=== PATIENT | female | born 1985 | race Caucasian/White ===

== ENCOUNTER 2016-10-25 18:28 | Emergency (ER) | payer OTHER ==
--- NOTE | 2016-10-25 19:02 | ED NURSING NOTES ---
Clinical Report - Nurses [facility] [address] [place] [address] 10/25/2016 18:31 [id number] Triage time 18:36 Oct 25 2016. Acuity: LEVEL 4. Chief Complaint: RIGHT EAR PAIN. AFSHAN COMA SCORE: Afshan Coma Scale: 15- eyes open spontaneously (4); best verbal response- oriented x 4 (5); best motor response- obeys commands (6). --18:44 Stiven Santillan R.N. 18:36 10/25/16. BP: 120/72. HR: 78. RR: 18. O2 saturation: 100%. Temp: 98.1 F. Pain level now 6/10. --18:44 Stiven Santillan R.N. Height/Length: 61 inches Per Patient. --18:38 Stiven Santillan R.N.. Weight: 79.3 kg stated. BMI: 33. --18:36 Stiven Santillan R.N. Medications Ibuprofen Oral. --18:39 Stiven Santillan R.N. Omeprazole Oral. --18:40 Stiven Santillan R.N. Claritin Oral. --18:40 Stiven Santillan R.N. Allergies No Known Drug Allergy. --18:40 Stiven Santillan R.N. Latex. --18:40 Stiven Santillan R.N. History Arrived by private vehicle. Historian: patient. ( Last Sat went to ready clinic and was given ear drops but the pain is worse.). She has had a nasal discharge, a sore throat, ear drainage, sinus pain and a headache. No fever. PAST MEDICAL HX: No history of ear infection, hearing loss or prior nosebleeds. Immunizations: up-to-date. The patient has had a hysterectomy. No history of sinus problems. SOCIAL HX: Current every day heavy tobacco smoker (cigarette)- less than 1 pack per day. No alcohol use or drug use. SELF HARM ASSESSMENT: A self harm assessment was performed. The patient answered "no" to the question "Have you recently felt down, depressed, or hopeless?" and "Do you have thoughts of harming or killing yourself?". FALL RISK ASSESSMENT: Fall risk assessment completed. No fall risk identified. NUTRITIONAL RISK ASSESSMENT: The nutritional risk assessment revealed no deficiencies. FUNCTIONAL ASSESSMENT: Functional assessment: no impairments noted. LEARNING NEEDS ASSESSMENT: The learning needs assessment revealed no barriers. ABUSE ASSESSMENT: Abuse assessment: (yes) The patient was asked "Do you feel safe in your home?". SKIN INTEGRITY ASSESSMENT: Skin integrity risk assessment completed. No skin integrity risk identified. --18:44 Stiven Santillan R.N. PROBLEMS: Endometriosis. --18:43 Stiven Santillan R.N. Anxiety Reaction. --18:44 Stiven Santillan R.N. ADDITIONAL SURGERIES: . Hysterectomy. Laparoscopy. Left elbow . --18:43 Stiven Santillan R.N. Interventions ID band on patient. --18:44 Stiven Santillan R.N. PHYSICAL ASSESSMENT Ambulatory to room. GENERAL / NEURO / PSYCH: Appears in pain. HEENT: No facial asymmetry noted. Pupils equal, round and reactive to light. EOM intact. Pharynx within normal limits. RESPIRATORY: Respirations not labored. CVS: Capillary refill less than 2 seconds. SKIN: Skin is warm and dry. --18:44 Stiven Santillan R.N. NURSING PROGRESS NOTES Reassurance given. Call light placed in reach. Side rails up x 1. --18:44 Stiven Santillan R.N. DISPOSITION / DISCHARGE 19:10 10/25/16. Condition at departure: stable. The goals identified in the patient's plan of care were met. No learning barriers present. Discharge instructions provided and reviewed with the patient. Reviewed warnings (Do not drive while taking sedative medications). Reviewed medication(s) side effects, precautions, dosing and course information. Prescription(s) given to the patient. Patient verbalized understanding. Written instructions provided in Spanish. ( Follow up with your PCP in three days. Drink plenty of fluids. Return if symptoms worsen. Patient verbalized understanding and had no additional questions at this time.). The patient was discharged by the physician. She was discharged home and accompanied by actuarial technician. She left the Emergency Department ambulatory and via private vehicle. Urologic Surgeon driving. FALL RISK ASSESSMENT: Fall risk assessment completed. No fall risk identified. --21:06 Jen Álvarez 19:10 10/25/16. BP: deferred. HR: deferred. RR: deferred. O2 saturation: deferred. Temp: deferred. Pain level now deferred. --21:06 Jen Álvarez. Locked/Released at 10/31/2016 19:01 by Stiven Santillan R.N.
--- NOTE | 2016-10-25 19:02 | ED CLINICAL REPORT ---
Clinical Report - Physicians/Mid Levels [facility] [address] [place] [address] 10/25/2016 18:31 Patient: CLARA PASTRANA Time Seen: 18:51; initial patient contact, initial documentation, patient care assumed. Arrived- By private vehicle. Historian- patient. HISTORY OF PRESENT ILLNESS Chief Complaint: EARACHE. Modifying factors. Not worsened by anything. Not relieved by anything. This started about 1 weeks ago. Location- right ear. The pain is described as moderate. The patient has had mild right ear pain. No ear drainage, complaint of foreign body in the ear, ear trauma, recent barotrauma or tinnitus. She has had nasal congestion, sinus pressure and a nasal discharge and sore throat. Similar symptoms previously: None. Recent medical care: The patient was seen recently in a clinic. ( went to clinic Sat, given ear drops, no better). REVIEW OF SYSTEMS No fever, cough, difficulty breathing or chest pain. She has had a pressure-like frontal and facial headache. All systems otherwise negative, except as recorded above. PAST HISTORY See nurses notes. PROBLEMS: Endometriosis. --18:43 Stiven Santillan R.N. Anxiety Reaction. --18:44 Stiven Santillan R.N. ADDITIONAL SURGERIES: . Hysterectomy. Laparoscopy. Left elbow . --18:43 Stiven Santillan R.N. SOCIAL HISTORY Light tobacco smoker. Not exposed to second-hand smoke at home. No alcohol use or drug use. No recent travel. Is a local resident. FAMILY HISTORY Negative. ADDITIONAL NOTES The nursing notes have been reviewed with agreement regarding the chief complaint, HPI, ROS, PMH and patient medications and allergies. PHYSICAL EXAM Vital Signs: 10/25/2016 18:36 BP: 120/72. HR: 78. RR: 18. O2 saturation: 100%. Temp: 98.1 F. Have been reviewed as normal and appear to be correct. Appearance: Alert. No acute distress. Eyes: Eyes normal inspection. Throat: Pharynx normal. Nose: Tenderness present to percussion/palpation of the sinuses: moderate right and left frontal tenderness, maxillary tenderness, ethmoid tenderness. Nose abnormal. No nasal discharge. Ear (right): Right ear normal. Right tympanic membrane normal. Ear (left): Left ear normal. Left tympanic membrane normal. Neck: Normal inspection. Neck supple. CVS: Normal heart rate and rhythm. Heart sounds normal. Respiratory: No respiratory distress. Breath sounds normal. Abdomen: Soft and nontender. Moderately obese. Back: Normal inspection. Skin: Skin warm and dry. Normal skin color. No rash. Normal skin turgor. Extremities: Extremities exhibit normal ROM. No lower extremity edema. Neuro: Oriented X 3. No motor deficit. No sensory deficit. PROGRESS AND PROCEDURES Patient counseled in person regarding the patient's stable condition and diagnosis. Differential Diagnosis: Other possible considerations: aoe, aom, perforated tm, sinusitis, allergies, flu, viral illness, pharyngitis, bronchitis, pneumonia. Above considerations are based on history and physical exam. Differential diagnosis was discussed with patient. Disposition: Discharged home in good and unchanged condition (19:02). Condition: good and stable. CLINICAL IMPRESSION Acute maxillary, ethmoidal and frontal sinusitis INSTRUCTIONS Drink plenty of fluids for the next 24 hours until better. Warnings: GENERAL WARNINGS: Return or contact your physician immediately if your condition worsens or changes unexpectedly, if not improving as expected, or if other problems arise. Specifically return if problem worsens. Prescription Medications: Nasacort nasal spray: 2 sprays in each nostril once daily as needed for allergies. Dispense one (1) unit. No refills. Substitution is permissible. Augmentin 875 mg: take 1 tablet orally every 12 hours for 10 days. No refill. Ultram 50 mg tablets: take 1-2 orally every 6 hours as needed for pain. Dispense twenty (20). No refills. Substitution is permissible. Follow-up: Follow up with your doctor in about three days even if well. Call for an appointment. Summary of care provided to patient. Understanding of the discharge instructions verbalized by patient. (Electronically signed by Kathleen Son A.R.N.P. 10/25/2016 20:13)
--- NOTE | 2016-10-25 19:02 | ED NURSING NOTES ---
Clinical Report - Nurses [facility] [address] [place] [address] 10/25/2016 18:31 [id number] Triage time 18:36 Oct 25 2016. Acuity: LEVEL 4. Chief Complaint: RIGHT EAR PAIN. AFSHAN COMA SCORE: Afshan Coma Scale: 15- eyes open spontaneously (4); best verbal response- oriented x 4 (5); best motor response- obeys commands (6). --18:44 Stiven Santillan R.N. 18:36 10/25/16. BP: 120/72. HR: 78. RR: 18. O2 saturation: 100%. Temp: 98.1 F. Pain level now 6/10. --18:44 Stiven Santillan R.N. Height/Length: 61 inches Per Patient. --18:38 Stiven Santillan R.N.. Weight: 79.3 kg stated. BMI: 33. --18:36 Stiven Santillan R.N. Medications Ibuprofen Oral. --18:39 Stiven Santillan R.N. Omeprazole Oral. --18:40 Stiven Santillan R.N. Claritin Oral. --18:40 Stiven Santillan R.N. Allergies No Known Drug Allergy. --18:40 Stiven Santillan R.N. Latex. --18:40 Stiven Santillan R.N. History Arrived by private vehicle. Historian: patient. ( Last Sat went to ready clinic and was given ear drops but the pain is worse.). She has had a nasal discharge, a sore throat, ear drainage, sinus pain and a headache. No fever. PAST MEDICAL HX: No history of ear infection, hearing loss or prior nosebleeds. Immunizations: up-to-date. The patient has had a hysterectomy. No history of sinus problems. SOCIAL HX: Current every day heavy tobacco smoker (cigarette)- less than 1 pack per day. No alcohol use or drug use. SELF HARM ASSESSMENT: A self harm assessment was performed. The patient answered "no" to the question "Have you recently felt down, depressed, or hopeless?" and "Do you have thoughts of harming or killing yourself?". FALL RISK ASSESSMENT: Fall risk assessment completed. No fall risk identified. NUTRITIONAL RISK ASSESSMENT: The nutritional risk assessment revealed no deficiencies. FUNCTIONAL ASSESSMENT: Functional assessment: no impairments noted. LEARNING NEEDS ASSESSMENT: The learning needs assessment revealed no barriers. ABUSE ASSESSMENT: Abuse assessment: (yes) The patient was asked "Do you feel safe in your home?". SKIN INTEGRITY ASSESSMENT: Skin integrity risk assessment completed. No skin integrity risk identified. --18:44 Stiven Santillan R.N. PROBLEMS: Endometriosis. --18:43 Stiven Santillan R.N. Anxiety Reaction. --18:44 Stiven Santillan R.N. ADDITIONAL SURGERIES: . Hysterectomy. Laparoscopy. Left elbow . --18:43 Stiven Santillan R.N. Interventions ID band on patient. --18:44 Stiven Santillan R.N. PHYSICAL ASSESSMENT Ambulatory to room. GENERAL / NEURO / PSYCH: Appears in pain. HEENT: No facial asymmetry noted. Pupils equal, round and reactive to light. EOM intact. Pharynx within normal limits. RESPIRATORY: Respirations not labored. CVS: Capillary refill less than 2 seconds. SKIN: Skin is warm and dry. --18:44 Stiven Santillan R.N. NURSING PROGRESS NOTES Reassurance given. Call light placed in reach. Side rails up x 1. --18:44 Stiven Santillan R.N. DISPOSITION / DISCHARGE 19:10 10/25/16. Condition at departure: stable. The goals identified in the patient's plan of care were met. No learning barriers present. Discharge instructions provided and reviewed with the patient. Reviewed warnings (Do not drive while taking sedative medications). Reviewed medication(s) side effects, precautions, dosing and course information. Prescription(s) given to the patient. Patient verbalized understanding. Written instructions provided in Tristanian. ( Follow up with your PCP in three days. Drink plenty of fluids. Return if symptoms worsen. Patient verbalized understanding and had no additional questions at this time.). The patient was discharged by the physician. She was discharged home and accompanied by senior solutions engineer. She left the Emergency Department ambulatory and via private vehicle. Submarine Advisory Team Watch Officer driving. FALL RISK ASSESSMENT: Fall risk assessment completed. No fall risk identified. --21:06 Jen Álvarez 19:10 10/25/16. BP: deferred. HR: deferred. RR: deferred. O2 saturation: deferred. Temp: deferred. Pain level now deferred. --21:06 Jen Álvarez. Locked/Released at 10/31/2016 19:01 by Stiven Santillan R.N.
--- NOTE | 2016-10-31 19:02 | ED MED RECONCILIATION SUMMARY ---
Patient: CLARA PASTRANA Medication Reconciliation Report [facility] VisitID: [id number] [address] [place] [address] 30y, F Registration Date/Time: 10/25/2016 Weight: 79.3 kg Height/Length: 61 in. BMI: 33.0 ALLERGIES: Latex, No Known Drug Allergy The patient's Home Medications are listed below: THE FOLLOWING MEDICATIONS NEED TO BE RECONCILED: Claritin Oral Ibuprofen Oral Omeprazole Oral The source(s) of the original Home Medication information: Not obtained. The following Medications were given to the patient in the Emergency Department: None. The following Medications were prescribed to the patient: Nasacort nasal spray: 2 sprays in each nostril once daily as needed for allergies. Dispense one (1) unit. No refills. Substitution is permissible. -- Kathleen Son, Adele.R.N.P. Augmentin 875 mg: take 1 tablet orally every 12 hours for 10 days. No refill. -- Kathleen Son A.R.N.P. Ultram 50 mg tablets: take 1-2 orally every 6 hours as needed for pain. Dispense twenty (20). No refills. Substitution is permissible. -- Kathleen Son A.R.N.P.
--- NOTE | 2016-10-31 19:02 | ED MAR SUMMARY ---
..... Medication Administration Record [facility] [address] [id number] Patient: LCARA PASTRANA Visit ID: [id number] 30y, F Weight: 79.3 kg Height/Length: 61 in BMI: 33 ALLERGIES: Latex, No Known Drug Allergy
--- NOTE | 2016-10-31 19:02 | ED MED RECONCILIATION SUMMARY ---
Patient: CLARA PASTRANA Medication Reconciliation Report [facility]ID: [id number] [address] [place] [address] 30y, F Registration Date/Time: 10/25/2016 Weight: 79.3 kg Height/Length: 61 in. BMI: 33.0 ALLERGIES: Latex, No Known Drug Allergy The patient's Home Medications are listed below: THE FOLLOWING MEDICATIONS NEED TO BE RECONCILED: Claritin Oral Ibuprofen Oral Omeprazole Oral The source(s) of the original Home Medication information: Not obtained. The following Medications were given to the patient in the Emergency Department: None. The following Medications were prescribed to the patient: Nasacort nasal spray: 2 sprays in each nostril once daily as needed for allergies. Dispense one (1) unit. No refills. Substitution is permissible. -- Kathleen Son, Adele.R.N.P. Augmentin 875 mg: take 1 tablet orally every 12 hours for 10 days. No refill. -- Kathleen Son A.R.N.P. Ultram 50 mg tablets: take 1-2 orally every 6 hours as needed for pain. Dispense twenty (20). No refills. Substitution is permissible. -- Kathleen Son A.R.N.P.
--- NOTE | 2016-10-31 19:02 | ED DISCHARGE INSTRUCTIONS ---
Patient: CLARA PASTRANA General Instructions [facility] VisitID: [id number] [place] [address] 30y, F Registration Date/Time: 10/25/2016 Acute maxillary, ethmoidal and frontal sinusitis INSTRUCTIONS Drink plenty of fluids for the next 24 hours until better. Warnings: GENERAL WARNINGS: Return or contact your physician immediately if your condition worsens or changes unexpectedly, if not improving as expected, or if other problems arise. Specifically return if problem worsens. Prescription Medications: Nasacort nasal spray: 2 sprays in each nostril once daily as needed for allergies. Dispense one (1) unit. No refills. Substitution is permissible. Augmentin 875 mg: take 1 tablet orally every 12 hours for 10 days. No refill. Ultram 50 mg tablets: take 1-2 orally every 6 hours as needed for pain. Dispense twenty (20). No refills. Substitution is permissible. Follow-up: Follow up with your doctor in about three days even if well. Call for an appointment. Summary of care provided to patient. Understanding of the discharge instructions verbalized by patient. ADDITIONAL INFORMATION Sinusitis [Abx Tx] The sinuses are air-filled spaces within the bones of the face. They connect to the inside of the nose. Sinusitis is an inflammation of the tissue lining the sinus cavity. Sinus inflammation can occur during a cold or hay-fever (allergies to pollens and other particles in the air) and cause symptoms of sinus congestion and fullness. A sinus infection causes fever, headache and facial pain. There is usually green or yellow drainage from the nose or into the back of the throat (post-nasal drip). Antibiotics are prescribed to treat this condition. Home Care: Drink plenty of water, hot tea, and other liquids to stay well hydrated. This thins the mucus and promotes sinus drainage. Apply heat to the painful areas of the face. Use a towel soaked in hot water. Or, business transformation manager the shower and direct the hot spray onto your face. This is a good way to inhale warm water vapor and get heat on your face at the same time. (Cover your mouth and nose with your hands so you can still breathe as you do this.) Use a vaporizer with products such as [employer] VapoRub (contains menthol) at night. Suck on peppermint, menthol or eucalyptus hard candies during the day. An expectorant containing guaifenesin (such as Robitussin), helps to thin the mucus and promote drainage from the sinuses. Cuai-wdz-odtugga decongestants may be used unless a similar medicine was prescribed. Nasal sprays work the fastest. Use one that contains phenylephrine (Art-synephrine, Sinex and others) or oxymetazoline (Afrin). First blow the nose gently to remove mucus, then apply the drops. Do not use these medicines more often than directed on the label or for more than three days or symptoms may worsen. You may also use tablets containing pseudoephedrine (Sudafed). Many sinus remedies combine ingredients, which may increase side effects. Read the labels or ask the pharmacist for help. NOTE: Persons with high blood pressure should not use decongestants. They can raise blood pressure. Antihistamines are useful if allergies are a cause of your sinusitis. The mildest one is chlorpheniramine (available without a prescription). The dose for adults is 8-12mg three times a day. [NOTE: Do not use chlorpheniramine if you have glaucoma or if you are a man with trouble urinating due to an enlarged prostate.] Claritin (loratidine) is an antihistamine that causes less drowsiness and is a good alternative for daytime use. Do not use nasal rinses or irrigation during an acute sinus infection, unless advised by your doctor. Rinsing may spread the infection to other sinuses. You may use acetaminophen (Tylenol) or ibuprofen (Motrin, Advil) to control pain, unless another pain medicine was prescribed. [ NOTE: If you have chronic liver or kidney disease or ever had a stomach ulcer, talk with your doctor before using these medicines.] (Aspirin should never be used in anyone under 18 years of age who is ill with a fever. It may cause severe liver damage.) Finish the full course, even if you are feeling better after a few days. Follow Up with your doctor or this facility in one week or as instructed by our staff if not improving. Get Prompt Medical Attention if any of the following occur: Facial pain or headache becomes more severe Stiff neck Unusual drowsiness or confusion, or not acting like your normal self Swelling of the forehead or eyelids Vision problems including blurred or double vision Fever of 100.4F (38C) or higher, or as directed by your healthcare provider Seizure Triamcinolone Acetonide Nasal spray What is this medicine? TRIAMCINOLONE (trye am SIN oh lone) nasal spray is a corticosteroid. It is used to treat the nasal symptoms of seasonal and year round allergies. How should I use this medicine? This medicine is for use in the nose. Follow the directions on your prescription label. This medicine works best if used regularly. Do not use more often than directed. Make sure that you are using your nasal spray correctly. Ask you doctor or health care provider if you have any questions. Talk to your restaurant expeditor regarding the use of this medicine in children. While this drug may be prescribed for children as young as 2 years of age for selected conditions, precautions do apply. What side effects may I notice from receiving this medicine? Side effects that you should report to your doctor or health child care teacher as soon as possible: allergic reactions like skin rash, itching or hives, swelling of the face, lips, or tongue change in vision dizziness infection nosebleed, burning in the nose trouble breathing, wheezing unusual bruising white patches or sores in the nose Side effects that usually do not require medical attention (report to your doctor or health child care teacher if they continue or are bothersome): congestion cough headache nausea runny nose sneezing What may interact with this medicine? Interactions are not expected. What if I miss a dose? If you miss a dose, take it as soon as you can. If it is almost time for your next dose, take only that dose. Do not take double or extra doses. Where should I keep my medicine? Keep out of the reach of children. Store at room temperature between 20 and 25 degrees C (68 and 77 degrees F). Throw away the canister after 120 sprays or after the expiration date, whichever comes first. What should I tell my health care provider before I take this medicine? They need to know if you have any of these conditions: infection, like tuberculosis, herpes, or fungal infection recent surgery or injury of nose or sinuses taking corticosteroids by mouth an unusual or allergic reaction to triamcinolone, corticosteroids, other medicines, foods, dyes, or preservatives or trying to get breast-feeding What should I watch for while using this medicine? Check with your doctor or health child care teacher if your symptoms do not improve in 1 week of regular use or if they get worse. Do not come in contact with people who have chickenpox or the measles while you are taking this medicine. If you do, call your doctor right away. Amoxicillin Trihydrate, Clavulanate Potassium Oral tablet What is this medicine? AMOXICILLIN; CLAVULANIC ACID (a mox i KENNETH in; LEVAR yeung ic id) is a penicillin antibiotic. It is used to treat certain kinds of bacterial infections. It will not work for colds, flu, or other viral infections. How should I use this medicine? Take this medicine by mouth with a full glass of water. Follow the directions on the prescription label. Take at the start of a meal. Do not crush or chew. If the tablet has a score line, you may cut it in half at the score line for easier swallowing. Take your medicine at regular intervals. Do not take your medicine more often than directed. Take all of your medicine as directed even if you think you are better. Do not skip doses or stop your medicine early. Talk to your restaurant expeditor regarding the use of this medicine in children. Special care may be needed. What side effects may I notice from receiving this medicine? Side effects that you should report to your doctor or health child care teacher as soon as possible: allergic reactions like skin rash, itching or hives, swelling of the face, lips, or tongue breathing problems dark urine fever or chills, sore throat redness, blistering, peeling or loosening of the skin, including inside the mouth seizures trouble passing urine or change in the amount of urine unusual bleeding, bruising unusually weak or tired white patches or sores in the mouth or throat Side effects that usually do not require medical attention (report to your doctor or health child care teacher if they continue or are bothersome): diarrhea dizziness headache nausea, vomiting stomach upset vaginal or anal irritation What may interact with this medicine? allopurinol anticoagulants control pills methotrexate probenecid What if I miss a dose? If you miss a dose, take it as soon as you can. If it is almost time for your next dose, take only that dose. Do not take double or extra doses. Where should I keep my medicine? Keep out of the reach of children. Store at room temperature below 25 degrees C (77 degrees F). Keep container tightly closed. Throw away any unused medicine after the expiration date. What should I tell my health care provider before I take this medicine? They need to know if you have any of these conditions: bowel disease, like colitis kidney disease liver disease mononucleosis an unusual or allergic reaction to amoxicillin, penicillin, cephalosporin, other antibiotics, clavulanic acid, other medicines, foods, dyes, or preservatives or trying to get breast-feeding What should I watch for while using this medicine? Tell your doctor or health child care teacher if your symptoms do not improve. Do not treat diarrhea with over the counter products. Contact your doctor if you have diarrhea that lasts more than 2 days or if it is severe and watery. If you have diabetes, you may get a false-positive result for sugar in your urine. Check with your doctor or health child care teacher. control pills may not work properly while you are taking this medicine. Talk to your doctor about using an extra method of control. Tramadol Hydrochloride Oral tablet What is this medicine? TRAMADOL (TRA ma dole) is a pain reliever. It is used to treat moderate to severe pain in adults. How should I use this medicine? Take this medicine by mouth with a full glass of water. Follow the directions on the prescription label. If the medicine upsets your stomach, take it with food or milk. Do not take more medicine than you are told to take. Talk to your restaurant expeditor regarding the use of this medicine in children. Special care may be needed. What side effects may I notice from receiving this medicine? Side effects that you should report to your doctor or health child care teacher as soon as possible: allergic reactions like skin rash, itching or hives, swelling of the face, lips, or tongue breathing difficulties, wheezing confusion itching light headedness or fainting spells redness, blistering, peeling or loosening of the skin, including inside the mouth seizures Side effects that usually do not require medical attention (report to your doctor or health child care teacher if they continue or are bothersome): constipation dizziness drowsiness headache nausea, vomiting What may interact with this medicine? Do not take this medicine with any of the following medications: MAOIs like Carbex, Eldepryl, Marplan, Nardil, and Parnate This medicine may also interact with the following medications: alcohol or medicines that contain alcohol antihistamines benzodiazepines bupropion carbamazepine or oxcarbazepine clozapine cyclobenzaprine digoxin furazolidone linezolid medicines for depression, anxiety, or psychotic disturbances medicines for migraine headache like almotriptan, eletriptan, frovatriptan, naratriptan, rizatriptan, sumatriptan, zolmitriptan medicines for pain like pentazocine, buprenorphine, butorphanol, meperidine, nalbuphine, and propoxyphene medicines for sleep muscle relaxants naltrexone phenobarbital phenothiazines like perphenazine, thioridazine, chlorpromazine, mesoridazine, fluphenazine, prochlorperazine, promazine, and trifluoperazine procarbazine warfarin What if I miss a dose? If you miss a dose, take it as soon as you can. If it is almost time for your next dose, take only that dose. Do not take double or extra doses. Where should I keep my medicine? Keep out of the reach of children. Store at room temperature between 15 and 30 degrees C (59 and 86 degrees F). Keep container tightly closed. Throw away any unused medicine after the expiration date. What should I tell my health care provider before I take this medicine? They need to know if you have any of these conditions: brain tumor depression drug abuse or addiction head injury if you frequently drink alcohol containing drinks kidney disease or trouble passing urine liver disease lung disease, asthma, or breathing problems seizures or epilepsy suicidal thoughts, plans, or attempt; a previous suicide attempt by you or a family member an unusual or allergic reaction to tramadol, codeine, other medicines, foods, dyes, or preservatives or trying to get breast-feeding What should I watch for while using this medicine? Tell your doctor or health child care teacher if your pain does not go away, if it gets worse, or if you have new or a different type of pain. You may develop tolerance to the medicine. Tolerance means that you will need a higher dose of the medicine for pain relief. Tolerance is normal and is expected if you take this medicine for a long time. Do not suddenly stop taking your medicine because you may develop a severe reaction. Your body becomes used to the medicine. This does NOT mean you are addicted. Addiction is a behavior related to getting and using a drug for a non-medical reason. If you have pain, you have a medical reason to take pain medicine. Your doctor will tell you how much medicine to take. If your doctor wants you to stop the medicine, the dose will be slowly lowered over time to avoid any side effects. You may get drowsy or dizzy. Do not drive, use machinery, or do anything that needs mental alertness until you know how this medicine affects you. Do not stand or sit up quickly, especially if you are an older patient. This reduces the risk of dizzy or fainting spells. Alcohol can increase or decrease the effects of this medicine. Avoid alcoholic drinks. You may have constipation. Try to have a bowel movement at least every 2 to 3 days. If you do not have a bowel movement for 3 days, call your doctor or health child care teacher. Your mouth may get dry. Chewing sugarless gum or sucking hard candy, and drinking plenty of water may help. Contact your doctor if the problem does not go away or is severe. You have been given the following additional information: Sinusitis, Abx Tx Triamcinolone Acetonide Nasal spray Amoxicillin Trihydrate, Clavulanate Potassium Oral tablet Tramadol Hydrochloride Oral tablet (Electronically signed by Kathleen Son A.R.N.P. 10/25/2016 20:13)
--- NOTE | 2016-10-31 19:02 | ED MAR SUMMARY ---
..... Medication Administration Record [facility] [address] [place], [place] [id number] Patient: CLARA PASTRANA Visit ID: [id number] 30y, F Weight: 79.3 kg Height/Length: 61 in BMI: 33 ALLERGIES: Latex, No Known Drug Allergy
--- NOTE | 2016-10-31 19:02 | ED DISCHARGE INSTRUCTIONS ---
Patient: CLARA PASTRANA General Instructions [facility] VisitID: [id number] [place] [address] 30y, F Registration Date/Time: 10/25/2016 Acute maxillary, ethmoidal and frontal sinusitis INSTRUCTIONS Drink plenty of fluids for the next 24 hours until better. Warnings: GENERAL WARNINGS: Return or contact your physician immediately if your condition worsens or changes unexpectedly, if not improving as expected, or if other problems arise. Specifically return if problem worsens. Prescription Medications: Nasacort nasal spray: 2 sprays in each nostril once daily as needed for allergies. Dispense one (1) unit. No refills. Substitution is permissible. Augmentin 875 mg: take 1 tablet orally every 12 hours for 10 days. No refill. Ultram 50 mg tablets: take 1-2 orally every 6 hours as needed for pain. Dispense twenty (20). No refills. Substitution is permissible. Follow-up: Follow up with your doctor in about three days even if well. Call for an appointment. Summary of care provided to patient. Understanding of the discharge instructions verbalized by patient. ADDITIONAL INFORMATION Sinusitis [Abx Tx] The sinuses are air-filled spaces within the bones of the face. They connect to the inside of the nose. Sinusitis is an inflammation of the tissue lining the sinus cavity. Sinus inflammation can occur during a cold or hay-fever (allergies to pollens and other particles in the air) and cause symptoms of sinus congestion and fullness. A sinus infection causes fever, headache and facial pain. There is usually green or yellow drainage from the nose or into the back of the throat (post-nasal drip). Antibiotics are prescribed to treat this condition. Home Care: Drink plenty of water, hot tea, and other liquids to stay well hydrated. This thins the mucus and promotes sinus drainage. Apply heat to the painful areas of the face. Use a towel soaked in hot water. Or, clinical pharmacist the shower and direct the hot spray onto your face. This is a good way to inhale warm water vapor and get heat on your face at the same time. (Cover your mouth and nose with your hands so you can still breathe as you do this.) Use a vaporizer with products such as VicEnviable Abode VapoRub (contains menthol) at night. Suck on peppermint, menthol or eucalyptus hard candies during the day. An expectorant containing guaifenesin (such as Robitussin), helps to thin the mucus and promote drainage from the sinuses. [id number] decongestants may be used unless a similar medicine was prescribed. Nasal sprays work the fastest. Use one that contains phenylephrine (Art-synephrine, Sinex and others) or oxymetazoline (Afrin). First blow the nose gently to remove mucus, then apply the drops. Do not use these medicines more often than directed on the label or for more than three days or symptoms may worsen. You may also use tablets containing pseudoephedrine (Sudafed). Many sinus remedies combine ingredients, which may increase side effects. Read the labels or ask the pharmacist for help. NOTE: Persons with high blood pressure should not use decongestants. They can raise blood pressure. Antihistamines are useful if allergies are a cause of your sinusitis. The mildest one is chlorpheniramine (available without a prescription). The dose for adults is 8-12mg three times a day. [NOTE: Do not use chlorpheniramine if you have glaucoma or if you are a man with trouble urinating due to an enlarged prostate.] Claritin (loratidine) is an antihistamine that causes less drowsiness and is a good alternative for daytime use. Do not use nasal rinses or irrigation during an acute sinus infection, unless advised by your doctor. Rinsing may spread the infection to other sinuses. You may use acetaminophen (Tylenol) or ibuprofen (Motrin, Advil) to control pain, unless another pain medicine was prescribed. [ NOTE: If you have chronic liver or kidney disease or ever had a stomach ulcer, talk with your doctor before using these medicines.] (Aspirin should never be used in anyone under 18 years of age who is ill with a fever. It may cause severe liver damage.) Finish the full course, even if you are feeling better after a few days. Follow Up with your doctor or this facility in one week or as instructed by our staff if not improving. Get Prompt Medical Attention if any of the following occur: Facial pain or headache becomes more severe Stiff neck Unusual drowsiness or confusion, or not acting like your normal self Swelling of the forehead or eyelids Vision problems including blurred or double vision Fever of 100.4F (38C) or higher, or as directed by your healthcare provider Seizure Triamcinolone Acetonide Nasal spray What is this medicine? TRIAMCINOLONE (trye am SIN oh lone) nasal spray is a corticosteroid. It is used to treat the nasal symptoms of seasonal and year round allergies. How should I use this medicine? This medicine is for use in the nose. Follow the directions on your prescription label. This medicine works best if used regularly. Do not use more often than directed. Make sure that you are using your nasal spray correctly. Ask you doctor or health care provider if you have any questions. Talk to your head animal trainer regarding the use of this medicine in children. While this drug may be prescribed for children as young as 2 years of age for selected conditions, precautions do apply. What side effects may I notice from receiving this medicine? Side effects that you should report to your doctor or health rn critical care as soon as possible: allergic reactions like skin rash, itching or hives, swelling of the face, lips, or tongue change in vision dizziness infection nosebleed, burning in the nose trouble breathing, wheezing unusual bruising white patches or sores in the nose Side effects that usually do not require medical attention (report to your doctor or health rn critical care if they continue or are bothersome): congestion cough headache nausea runny nose sneezing What may interact with this medicine? Interactions are not expected. What if I miss a dose? If you miss a dose, take it as soon as you can. If it is almost time for your next dose, take only that dose. Do not take double or extra doses. Where should I keep my medicine? Keep out of the reach of children. Store at room temperature between 20 and 25 degrees C (68 and 77 degrees F). Throw away the canister after 120 sprays or after the expiration date, whichever comes first. What should I tell my health care provider before I take this medicine? They need to know if you have any of these conditions: infection, like tuberculosis, herpes, or fungal infection recent surgery or injury of nose or sinuses taking corticosteroids by mouth an unusual or allergic reaction to triamcinolone, corticosteroids, other medicines, foods, dyes, or preservatives or trying to get breast-feeding What should I watch for while using this medicine? Check with your doctor or health rn critical care if your symptoms do not improve in 1 week of regular use or if they get worse. Do not come in contact with people who have chickenpox or the measles while you are taking this medicine. If you do, call your doctor right away. Amoxicillin Trihydrate, Clavulanate Potassium Oral tablet What is this medicine? AMOXICILLIN; CLAVULANIC ACID (a mox i KENNETH in; LEVAR yeung ic id) is a penicillin antibiotic. It is used to treat certain kinds of bacterial infections. It will not work for colds, flu, or other viral infections. How should I use this medicine? Take this medicine by mouth with a full glass of water. Follow the directions on the prescription label. Take at the start of a meal. Do not crush or chew. If the tablet has a score line, you may cut it in half at the score line for easier swallowing. Take your medicine at regular intervals. Do not take your medicine more often than directed. Take all of your medicine as directed even if you think you are better. Do not skip doses or stop your medicine early. Talk to your head animal trainer regarding the use of this medicine in children. Special care may be needed. What side effects may I notice from receiving this medicine? Side effects that you should report to your doctor or health rn critical care as soon as possible: allergic reactions like skin rash, itching or hives, swelling of the face, lips, or tongue breathing problems dark urine fever or chills, sore throat redness, blistering, peeling or loosening of the skin, including inside the mouth seizures trouble passing urine or change in the amount of urine unusual bleeding, bruising unusually weak or tired white patches or sores in the mouth or throat Side effects that usually do not require medical attention (report to your doctor or health rn critical care if they continue or are bothersome): diarrhea dizziness headache nausea, vomiting stomach upset vaginal or anal irritation What may interact with this medicine? allopurinol anticoagulants control pills methotrexate probenecid What if I miss a dose? If you miss a dose, take it as soon as you can. If it is almost time for your next dose, take only that dose. Do not take double or extra doses. Where should I keep my medicine? Keep out of the reach of children. Store at room temperature below 25 degrees C (77 degrees F). Keep container tightly closed. Throw away any unused medicine after the expiration date. What should I tell my health care provider before I take this medicine? They need to know if you have any of these conditions: bowel disease, like colitis kidney disease liver disease mononucleosis an unusual or allergic reaction to amoxicillin, penicillin, cephalosporin, other antibiotics, clavulanic acid, other medicines, foods, dyes, or preservatives or trying to get breast-feeding What should I watch for while using this medicine? Tell your doctor or health rn critical care if your symptoms do not improve. Do not treat diarrhea with over the counter products. Contact your doctor if you have diarrhea that lasts more than 2 days or if it is severe and watery. If you have diabetes, you may get a false-positive result for sugar in your urine. Check with your doctor or health rn critical care. control pills may not work properly while you are taking this medicine. Talk to your doctor about using an extra method of control. Tramadol Hydrochloride Oral tablet What is this medicine? TRAMADOL (TRA ma dole) is a pain reliever. It is used to treat moderate to severe pain in adults. How should I use this medicine? Take this medicine by mouth with a full glass of water. Follow the directions on the prescription label. If the medicine upsets your stomach, take it with food or milk. Do not take more medicine than you are told to take. Talk to your head animal trainer regarding the use of this medicine in children. Special care may be needed. What side effects may I notice from receiving this medicine? Side effects that you should report to your doctor or health rn critical care as soon as possible: allergic reactions like skin rash, itching or hives, swelling of the face, lips, or tongue breathing difficulties, wheezing confusion itching light headedness or fainting spells redness, blistering, peeling or loosening of the skin, including inside the mouth seizures Side effects that usually do not require medical attention (report to your doctor or health rn critical care if they continue or are bothersome): constipation dizziness drowsiness headache nausea, vomiting What may interact with this medicine? Do not take this medicine with any of the following medications: MAOIs like Carbex, Eldepryl, Marplan, Nardil, and Parnate This medicine may also interact with the following medications: alcohol or medicines that contain alcohol antihistamines benzodiazepines bupropion carbamazepine or oxcarbazepine clozapine cyclobenzaprine digoxin furazolidone linezolid medicines for depression, anxiety, or psychotic disturbances medicines for migraine headache like almotriptan, eletriptan, frovatriptan, naratriptan, rizatriptan, sumatriptan, zolmitriptan medicines for pain like pentazocine, buprenorphine, butorphanol, meperidine, nalbuphine, and propoxyphene medicines for sleep muscle relaxants naltrexone phenobarbital phenothiazines like perphenazine, thioridazine, chlorpromazine, mesoridazine, fluphenazine, prochlorperazine, promazine, and trifluoperazine procarbazine warfarin What if I miss a dose? If you miss a dose, take it as soon as you can. If it is almost time for your next dose, take only that dose. Do not take double or extra doses. Where should I keep my medicine? Keep out of the reach of children. Store at room temperature between 15 and 30 degrees C (59 and 86 degrees F). Keep container tightly closed. Throw away any unused medicine after the expiration date. What should I tell my health care provider before I take this medicine? They need to know if you have any of these conditions: brain tumor depression drug abuse or addiction head injury if you frequently drink alcohol containing drinks kidney disease or trouble passing urine liver disease lung disease, asthma, or breathing problems seizures or epilepsy suicidal thoughts, plans, or attempt; a previous suicide attempt by you or a family member an unusual or allergic reaction to tramadol, codeine, other medicines, foods, dyes, or preservatives or trying to get breast-feeding What should I watch for while using this medicine? Tell your doctor or health rn critical care if your pain does not go away, if it gets worse, or if you have new or a different type of pain. You may develop tolerance to the medicine. Tolerance means that you will need a higher dose of the medicine for pain relief. Tolerance is normal and is expected if you take this medicine for a long time. Do not suddenly stop taking your medicine because you may develop a severe reaction. Your body becomes used to the medicine. This does NOT mean you are addicted. Addiction is a behavior related to getting and using a drug for a non-medical reason. If you have pain, you have a medical reason to take pain medicine. Your doctor will tell you how much medicine to take. If your doctor wants you to stop the medicine, the dose will be slowly lowered over time to avoid any side effects. You may get drowsy or dizzy. Do not drive, use machinery, or do anything that needs mental alertness until you know how this medicine affects you. Do not stand or sit up quickly, especially if you are an older patient. This reduces the risk of dizzy or fainting spells. Alcohol can increase or decrease the effects of this medicine. Avoid alcoholic drinks. You may have constipation. Try to have a bowel movement at least every 2 to 3 days. If you do not have a bowel movement for 3 days, call your doctor or health rn critical care. Your mouth may get dry. Chewing sugarless gum or sucking hard candy, and drinking plenty of water may help. Contact your doctor if the problem does not go away or is severe. You have been given the following additional information: Sinusitis, Abx Tx Triamcinolone Acetonide Nasal spray Amoxicillin Trihydrate, Clavulanate Potassium Oral tablet Tramadol Hydrochloride Oral tablet (Electronically signed by Kathleen Son A.R.N.P. 10/25/2016 20:13)
== END 2016-10-25 19:10 | disposition home or self-care (01) ==
LOC: ED SRH 18:28
DX: J01.10 Acute frontal sinusitis, unspecified (principal); J01.20 Acute ethmoidal sinusitis, unspecified; J01.00 Acute maxillary sinusitis, unspecified; Z72.0 Tobacco use